=== PATIENT | male | born 1960 | race Caucasian/White ===

== ENCOUNTER → 2020-06-16 | Outpatient (CLI) | payer BC ==
--- NOTE | 2020-06-17 08:03 | CT ---
EXAMINATION TYPE: CT urogram wo/w con DATE OF EXAM: 06/16/2020 COMPARISON: None. HISTORY: Hematuria. Pt states worse in AM. . CT DLP: 1210.50 mGycm, Automated Exposure Control for Dose Reduction was Utilized. CONTRAST: CT scan of the abdomen and pelvis is performed without oral and without and with IV Contrast, patient injected with 100 mL of Isovue 300. Urogram protocol with 3-D reconstructed images created on an [employer] workstation and reviewed FINDINGS: KUB: Noncontrast images show suggestion of 2 punctate nonobstructing 1 to 2 mm calculi in the left ki dney sagittal image 117 for reference. No right-sided renal calculi. Postcontrast images show symmetr ic cortical medullary uptake and excretion with partially exophytic simple appearing 3.5 cm thin-wall ed cyst posteriorly lower pole level left kidney. No hydronephrosis is noted bilaterally. Satisfactor y opacification of bilateral ureters without suspicious filling defect. Near the left UVJ there is ba ll-shaped soft tissue 1.6 cm intraluminal mass worrisome for neoplasm axial image 72 series 11. LUNG BASES: No significant abnormality is appreciated. LIVER/GB: No significant abnormality is appreciated. PANCREAS: No significant abnormality is seen. SPLEEN: No significant abnormality is seen. ADRENALS: No significant abnormality is seen. BOWEL: No significant abnormality is seen. PROSTATE/SEMINAL VESICLES: Prostate gland mildly enlarged in size bulging of bladder base. Adjacent l eft-sided pelvic phlebolith. LYMPH NODES: No greater than 1cm abdominal or pelvic lymph nodes are appreciated. OSSEOUS STRUCTURES: No significant abnormality is seen. OTHER: Moderate calcified plaque of the abdominal aorta. Focal ectasia up to 2.6 cm transversely axia l image 40 series 5. No greater than 3.0 cm aneurysm. IMPRESSION: 1. Suspicious 1.6 cm intraluminal mass posterior left bladder near UVJ worrisome for neoplasm. Follow -up with direct visualization is advised.
== END | disposition home or self-care (01) ==
LOC: RADCTMAIN 15:59
PROVIDERS: ATTEND Urology
DX: R31.9 Hematuria, unspecified (principal)
CPT/HCPCS: 74178; 74400; Q9967

== ENCOUNTER 2020-07-10 12:01 | Day surgery (SDC) | payer BC ==
[2020-07-05 10:19] VITALS: BMI 25.0
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
[2020-07-10] MEDS ORDERED: ONDANSETRON 4 MG/2 ML VIAL ONE (12:58)
[2020-07-10] MEDS ORDERED: LIDOCAINE 1% (10MG/ML) FOR IV START INTRADERMA ONE (13:12)
[2020-07-10] MEDS ORDERED: DEXAMETHASONE SOD PHOSPHATE 4 MG/ML 1 ML VIAL IV ONE (13:13)
[2020-07-10] MEDS ORDERED: ONDANSETRON 4 MG/2 ML VIAL IVP ONE (13:13)
[2020-07-10] MEDS ORDERED: LACTATED RINGERS 1,000 ML IV ONE ×2 (13:14→16:43)
[2020-07-10] MEDS ORDERED: ROCURONIUM 10 MG/ML (10 ML VIAL) IV ONE (14:45)
[2020-07-10] MEDS ORDERED: PROPOFOL 10 MG/ML 20 ML VIAL IV ONE (14:45)
[2020-07-10] MEDS ORDERED: SUCCINYLCHOLINE CHLORIDE 100 MG/5 ML SYR IV ONE (14:45)
[2020-07-10] MEDS ORDERED: fentaNYL (PF) 50 MCG/ML 2 ML AMP ONE (14:45)
[2020-07-10] MEDS ORDERED: GLYCOPYRROLATE 0.2 MG/ML 2 ML VIAL ONE (14:45)
[2020-07-10] MEDS ORDERED: LIDOCAINE 1% INJ 10MG/ML (20 ML MDV) ONE (14:45)
[2020-07-10] MEDS ORDERED: PHENYLEPHRINE 10 MG/ML VIAL ONE (14:45)
[2020-07-10] MEDS ORDERED: MIDAZOLAM 2 MG/2 ML VIAL ONE (14:45)
[2020-07-10] MEDS ORDERED: NEOSTIGMINE 1 MG/ML 10 ML VIAL ONE (14:45)
--- NOTE | 2020-07-10 15:43 | P.OP ---
Date of Procedure: 07/10/20 Preoperative Diagnosis: Bladder tumor Postoperative Diagnosis: Same Procedure(s) Performed: Cystoscopy, TURBT (medium) Implants: None Anesthesia: [place]ANII[place] Surgeon: Yoni Martinez Estimated Blood Loss (ml): 10 Pathology: other (Bladder tumor) Condition: stable Disposition: PACU Indications for Procedure: Mr Dhillon is 59 yo male with hx of gross hematuria. He underwent a cystoscopy which showed a bladder tumor along the right side of the bladder, in close proximity to the ureteral orfice. I discussed with him given the finding on cystoscopy I recommend we proceed with TURBT. I discussed with him the risk of bleeding, infection and bladder perforation, I also discussed with him potential need for stent given tumor proximity to the UO. Operative Findings: Approximate 3 cm bladder tumor along the left lateral wall, in close proximity to the ureteral orifice Description of Procedure: Patient was brought to the operating room, general anesthesia was induced. He was prepped and draped in sterile fashion a placement dorsal lithotomy position. I initially attempted to advance a resectoscope fitted with a 25 sheath through the meatus, but patient had meatal stenosis. Using the male sounds the meatus was dilated to 30-Comoran. Next the resectoscope fitted with a 25-Comoran sheath was reinserted, and was advanced into the bladder. Complete cystoscopy was performed which showed a solitary tumor along the left lateral wall, the tumor measured approximately 3 cm. The tumor was in close proximity to the ureteral orifice but the tumor was lateral to the UO. Using the resectoscope the tumor was resected down to muscle, the specimen was irrigated out and sent to pathology. The area of resection was thoroughly fulgurated, of note the tumor was in close proximity to the left ureteral orifice, but the ureteral orifice was neither resected nor fulgurated. Repeat cystoscopy showed no additional tumors or evidence of bleeding. At this time an 18-Comoran Sorensen was placed with return of clear urine. The balloon was admitted with 10 mL. The patient was awakened from anesthesia and taken recovery in stable condition
[2020-07-10 15:56] VITALS: TEMP 97.6
[2020-07-10] MEDS ORDERED: HYDROmorphone 0.5 MG/0.5 ML SYRINGE IVP ONE (15:58)
[2020-07-10 16:26] VITALS: RESP 16
[2020-07-10 17:59] VITALS: BP 153/87; PULSE 76
== END 2020-07-10 17:59 | disposition home or self-care (01) ==
LOC: OR 12:01
PROVIDERS: ATTEND Urology
DX: C67.2 Malignant neoplasm of lateral wall of bladder (principal); E78.5 Hyperlipidemia, unspecified; I10 Essential (primary) hypertension; I25.2 Old myocardial infarction; F17.200 Nicotine dependence, unspecified, uncomplicated; Z98.890 Other specified postprocedural states; Z90.89 Acquired absence of other organs; Z79.82 Long term (current) use of aspirin; Z79.899 Other long term (current) drug therapy
CPT/HCPCS: 52235; 88307; J2250; J1100; J2370; J2710; J2405; J2001; J3010; J0330; J2704; J1170

== ENCOUNTER → 2022-06-17 | Outpatient (CLI) | payer BC ==
--- NOTE | 2022-06-18 17:45 | CT ---
EXAMINATION TYPE: CT urogram wo/w con DATE OF EXAM: 06/17/2022 COMPARISON: 06/16/2020 INDICATION: MALIGNANT NEOPLASM OF BLADDER, UNSPECIFIED DLP: 1118.10 mGycm, Automated exposure control for dose reduction was used. CONTRAST: 70 ML mL of Isovue 300. Study performed without Oral Contrast TECHNIQUE: Axial images were obtained from above the diaphragm to the pubic rami in the axial plane a t 5 mm thick sections. Reconstructed images are reviewed on the computer in the coronal plane. FINDINGS: Limited CT sections are obtained the lung bases. The lung bases are clear. CT ABDOMEN: Liver: Normal Spleen: Normal Pancreas: Normal Adrenal glands: The adrenal glands are normal. Gallbladder: Normal Kidneys: No masses are evident. No hydronephrosis is present. There is a 2.6 cm posterior lateral l eft renal cyst measuring 13 Hounsfield units. Delayed images were obtained through the kidneys, whic h remain unremarkable. Aorta: Vascular calcification is within the aorta. Minimal fusiform prominence with a greatest trans verse dimension of 2.7 cm within the mid abdominal aorta. Aneurysmal dilatation is identified. Inferior vena cava: Normal. CT PELVIS: Loops of bowel within the abdomen and pelvis are normal. There are loops of bowel which are incom pletely distended or lack oral contrast limiting their evaluation. Appendix: Normal as visualized. Urinary bladder: Within the dependent portion of the urinary bladder there is a small filling defect measuring 1.0 cm. Series 7 image 65. Cystoscopy is recommended for direct visualization. On more tato yed images additional punctate areas are within the posterior lateral right urinary bladder measuring 0.8 and 0.4 cm in size. Series 8 image 66. Small defect above the prostate is not excluded. Series 8 image 71 Genitourinary structures: Prostate is somewhat prominent. Osseous structures: No suspicious lytic or sclerotic lesions. IMPRESSIONS: 1. Small posterolateral filling defects measuring 0.4 to 1.0 cm in size or along the posterolateral urinary bladder juarez and urine bladder floor. Recommend cystoscopy to evaluate for recurrent urinary bladder cancer.
== END | disposition home or self-care (01) ==
LOC: RADCTMAIN 10:18
PROVIDERS: ATTEND Urology
DX: C67.9 Malignant neoplasm of bladder, unspecified (principal); N32.89 Other specified disorders of bladder
CPT/HCPCS: 74178; 74400; Q9967

== ENCOUNTER 2022-11-19 13:56 | Day surgery (SDC) | payer BC ==
[~2022-11-19 13:56] MED LIST: HYDROmorphone 0.5 MG/0.5 ML SYRINGE IVP PRN; LACTATED RINGERS 1,000 ML IV SCH; ONDANSETRON 4 MG/2 ML VIAL IVP ONE; fentaNYL (PF) 50 MCG/ML 2 ML AMP IV PRN
[2022-11-19 14:35] VITALS: RESP 16
[2022-11-19] MEDS ORDERED: ONDANSETRON 4 MG/2 ML VIAL ONE (14:36)
[2022-11-19] MEDS ORDERED: DEXAMETHASONE SOD PHOSPHATE 4 MG/ML 1 ML VIAL IVP ONE (14:43)
[2022-11-19] MEDS ORDERED: MIDAZOLAM 2 MG/2 ML VIAL ONE (15:41)
[2022-11-19] MEDS ORDERED: fentaNYL (PF) 50 MCG/ML 2 ML AMP ONE (15:41)
[2022-11-19] MEDS ORDERED: LIDOCAINE 2% INJ 20 MG/ML (2 ML VIAL) ONE (15:41)
[2022-11-19] MEDS ORDERED: PROPOFOL 10 MG/ML 20 ML VIAL IV ONE (15:41)
[2022-11-19] MEDS ORDERED: ePHEDrine 50 MG/ML 1 ML VIAL ONE (15:41)
[2022-11-19] MEDS ORDERED: SUCCINYLCHOLINE CHLORIDE 200 MG/10 ML VIAL IV ONE (15:41)
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
[2022-11-19] MEDS ORDERED: LACTATED RINGERS 1,000 ML IV ONE (16:38)
--- NOTE | 2022-11-19 17:00 | P.OP ---
Date of Procedure: 11/19/22 Preoperative Diagnosis: Bladder cancer Postoperative Diagnosis: Same Procedure(s) Performed: TURBT(large) Implants: none Anesthesia: [place] Surgeon: Yoni Martinez Estimated Blood Loss (ml): 50 Pathology: other (bladder tumors) Condition: stable Disposition: PACU Indications for Procedure: This is a 62-year-old male with history of low-grade TA bladder cancer diagnosed back in June 2020. He has not followed up since his surgery, and did not follow up for his surveillance cystoscopies.. Presented back to our office with gross hematuria, underwent a cystoscopy that showed extensive amount of tumors within the bladder. Discussed with him given this finding I recommend proceeding with TURBT. Discussed risk of surgery which includes but not limited to bleeding, infection, bladder perforation. Risk of anesthesia was also discussed with him. Discussed with him the importance of surveillance given the recurrence he will require intravesical therapy following his resection. He understood all the risk and agreed proceed Operative Findings: Multiple papillary tumors involving the entire bladder, total area of resection was greater than 10 cm there were more than 30 tumors within the bladder Description of Procedure: Patient brought to the operating room, general anesthesia was induced. He was prepped and draped in sterile fashion and placed in dorsal lithotomy position. Resectoscope fitted 25-Nigerien sheath was inserted per urethra, scope was advanced into the bladder, cystoscopy was performed which showed multiple papillary tumors involving the entire bladder, there was greater than 30 tumors within the bladder. The total on area of resection was greater than 10 cm. Tumors were resected down to muscle. The area of resection was fulgurated. Tumor specimen was irrigated out. Repeat cystoscopy showed no evidence of any residual tumor or evidence of bleeding. Neither the ureteral orifice ease were injured. There was no evidence of bladder perforation. At this time the resectoscope was withdrawn and a 20-Nigerien Sorensen was placed with return of clear urine. Patient tolerated procedure well was taken to recovery in stable condition
[2022-11-19 17:05] VITALS: TEMP 97
[2022-11-19] MEDS: HYDROmorphone 0.5 MG/0.5 ML SYRINGE IVP ONE ×2 (17:06→17:20)
[2022-11-19] MEDS ORDERED: HYDROmorphone 0.5 MG/0.5 ML SYRINGE IVP ONE (17:40)
[2022-11-19 18:24] VITALS: BP 120/65; PULSE 62
== END 2022-11-19 18:55 | disposition home or self-care (01) ==
LOC: OR 13:56
PROVIDERS: ATTEND Urology
DX: C67.9 Malignant neoplasm of bladder, unspecified (principal); I10 Essential (primary) hypertension; F17.200 Nicotine dependence, unspecified, uncomplicated; Z79.899 Other long term (current) drug therapy
CPT/HCPCS: 52240; J2250; J0330; J1100; J0690; J2405; J3010; J2704; J1170; J2001; 88307

== ENCOUNTER → 2023-04-08 | Outpatient (CLI) | payer BC ==
[2023-04-08 15:23] LABS: Appearance,Urine Clear (Clear); Bilirubin,Urine Negative (Negative); Blood,Urine Trace (Negative); Color,Urine Yellow (Yellow); Ketones,Urine Negative (Negative); Nitrite,Urine Negative (Negative); Specific Gravity,Urine 1.007 (1.001-1.030); Urobilinogen,Urine 0.2 E.U./DL
[2023-04-08 15:28] LABS: Bacteria,Urine None Seen (None Seen)
[2023-04-08 15:56] LABS: Basophils # (A) 0.06 X 10*3/uL (0.00-0.10); Basophils % (A) 0.6 %; Eosinophils # (A) 0.54 X 10*3/uL (0.04-0.35); Eosinophils % (A) 5.3 %; HCT 47.3 % (39.6-50.0); Lymphocytes # (A) 2.23 X 10*3/uL (0.90-5.00); Lymphocytes % (A) 21.9 %; MCH 31.6 pg (27.0-32.0); MCHC 33.8 d/dL (32.0-37.0); MCV 93.3 FL (80.0-97.0); Monocytes % (A) 9.8 %; NRBC Per 100 WBC 0 X 10*3/uL (0.00-0.01); Neutrophils # (A) 6.31 X 10*3/uL (1.80-7.70); Neutrophils % (A) 62.1 %; Platelet Count 221 X 10*3/uL (140-440); RBC 5.07 X 10*6/uL (4.40-5.60); RDW 14.8 % (11.5-14.5); WBC 10.17 X 10*3/uL (4.50-10.00)
[2023-04-08 16:08] LABS: BUN/Creat Ratio 12.55 Ratio (12.00-20.00); Blood Urea Nitrogen 13.8 mg/dL (9.0-27.0); Glucose 96 mg/dL (70-110)
[2023-04-08 16:09] LABS: Calcium 9.9 mg/dL (8.7-10.3); Carbon Dioxide 25.4 mmol/L (21.6-31.8); Chloride 106 mmol/L (96-109); Potassium 5.2 mmol/L (3.5-5.5); Sodium 141 mmol/L (135-145)
== END | disposition home or self-care (01) ==
LOC: LABPAT 11:32
PROVIDERS: ATTEND Urology
DX: Z01.812 Encounter for preprocedural laboratory examination (principal); C67.9 Malignant neoplasm of bladder, unspecified; R31.29 Other microscopic hematuria
CPT/HCPCS: 80048; 81001; 85025; 87086